=== PATIENT | male | born 1935 | race Caucasian/White ===

== ENCOUNTER 2016-11-05 18:43 | Emergency (ER) | payer MEDICARE ==
[2016-11-05 19:17] LABS: URINE BILIRUBIN NEGATIVE (NEGATIVE); URINE BLOOD NEGATIVE (NEGATIVE); URINE GLUCOSE (UA) NORMAL (NORMAL); URINE KETONE NEGATIVE (NEGATIVE); URINE LEUKOCYTE ESTERASE NEGATIVE (NEGATIVE); URINE NITRATE NEGATIVE (NEGATIVE); URINE PROTEIN NEGATIVE (NEGATIVE); UROBILINOGEN NORMAL mg/dL (<1.0)
== END 2016-11-05 20:40 | disposition home or self-care (01) ==
LOC: ER 18:43
PROVIDERS: Emergency Medicine
DX: R33.9 Retention of urine, unspecified (principal); I50.9 Heart failure, unspecified; J44.9 Chronic obstructive pulmonary disease, unspecified; Z79.899 Other long term (current) drug therapy
CPT/HCPCS: 51702; 81003; 99070; 99283

== ENCOUNTER 2016-11-17 13:28 | Emergency (ER) | payer MEDICARE ==
[2016-11-17 13:51] LABS: BASO # 0.1 10_X3_uL (0.0-0.1); BASO % 0.4 % (0.2-1.2); EOS # 0.3 10_X3_uL (0.0-0.5); GRAN # 9.8 10_X3_uL (1.8-5.4); GRAN % 69.1 % (34.0-67.9); HEMATOCRIT 27.2 % (40-51); HEMOGLOBIN 8.8 g/dL (13.7-17.5); LYMPH % 21.3 % (21.8-53.1); MEAN CORPUSCULAR HEMOGLOBIN 32.7 pg (27.0-33.0); MEAN CORPUSCULAR HGB CONC 32.4 g/dL (32.0-36.0); MEAN CORPUSCULAR VOLUME 101.1 fL (79-92); MEAN PLATELET VOLUME 9.3 fl (7.5-11.5); MONO % 7.2 % (5.3-12.2); PLATELET COUNT 272 x10_3/uL (163-337); RED BLOOD COUNT 2.69 x10_6/uL (4.6-6.1); RED CELL DISTRIBUTION WIDTH 16.1 % (11.6-14.4); WHITE BLOOD COUNT 14.2 x10_3/uL (4.2-9.1)
[2016-11-17 14:00] LABS: ARTERIAL BLD GAS O2 SATURATION 95.1 % (94-98); ARTERIAL BLOOD GAS BASE EXCESS 7.4 mmol/L (-2.0-3.0); ARTERIAL BLOOD GAS HCO3 31.3 mmol/L (22-26); ARTERIAL BLOOD GAS PCO2 42.9 mmHg (35-48); ARTERIAL BLOOD GAS pH 7.48 (7.35-7.45)
[2016-11-17 14:09] LABS: ALBUMIN 2.5 gm/dL (3.4-5.0); BILIRUBIN,TOTAL 0.24 mg/dL (0.0-1.0); CALCIUM 8.2 mg/dL (8.7-10.7); CREATININE 2.7 mg/dL (0.6-1.3); TOTAL PROTEIN 6.2 gm/dL (6.4-8.2)
== END 2016-11-17 17:00 | disposition short-term general hospital (02) ==
LOC: ER 13:28
PROVIDERS: Emergency Medicine
DX: J86.9 Pyothorax without fistula (principal); J44.1 Chronic obstructive pulmonary disease with (acute) exacerbation; R60.0 Localized edema; Z99.81 Dependence on supplemental oxygen; Z79.899 Other long term (current) drug therapy
CPT/HCPCS: 36415; 36600; 71250; 80053; 82550; 82553; 82803; 83605; 85025; 86850; 86900; 86901; 87040; 93005; 94664; 96374; 99284; 99285-25; J2930

== ENCOUNTER 2016-11-29 18:43 | Inpatient (IN) | payer MEDICARE ==
[~2016-11-29] VITALS: Ht 167.6 cm; Wt 88.0 kg
[2016-11-29 19:57] LABS: URINE BILIRUBIN NEGATIVE (NEGATIVE); URINE BLOOD TRACE (NEGATIVE); URINE GLUCOSE (UA) NORMAL (NORMAL); URINE KETONE NEGATIVE (NEGATIVE); URINE LEUKOCYTE ESTERASE 2+ (NEGATIVE); URINE NITRATE NEGATIVE (NEGATIVE); URINE PROTEIN TRACE (NEGATIVE); UROBILINOGEN NORMAL mg/dL (<1.0)
[2016-11-29 20:44] LABS: URINE BACTERIA FEW (NONE SEEN); URINE SQUAMOUS EPITHELIAL CELL 0-10 /[HPF] (NONE SEEN); URINE WBC >15 /[HPF] (0-3); URINE YEAST FEW (NONE SEEN)
[2016-11-30 06:51] LABS: HEMATOCRIT 22.6 % (40-51); MEAN CORPUSCULAR VOLUME 101.3 fL (79-92); MEAN PLATELET VOLUME 8.9 fl (7.5-11.5); RED BLOOD COUNT 2.23 x10_6/uL (4.6-6.1); RED CELL DISTRIBUTION WIDTH 18.7 % (11.6-14.4); WHITE BLOOD COUNT 11.2 x10_3/uL (4.2-9.1)
[2016-11-30 07:01] LABS: MEAN CORPUSCULAR HEMOGLOBIN 31.3 pg (27.0-33.0)
[2016-11-30 07:19] LABS: ALBUMIN 2.4 gm/dL (3.4-5.0); BILIRUBIN,TOTAL 0.19 mg/dL (0.0-1.0); CALCIUM 7.9 mg/dL (8.7-10.7); CREATININE 1.4 mg/dL (0.6-1.3); POTASSIUM 3.9 mmol/L (3.5-5.1); TOTAL PROTEIN 5.2 gm/dL (6.4-8.2)
[2016-11-30 08:04] LABS: HEMATOCRIT 22.4 % (40-51)
[2016-11-30 08:07] LABS: HEMOGLOBIN 7.2 g/dL (13.7-17.5)
[2016-12-01 06:40] LABS: HEMATOCRIT 29.1 % (40-51); HEMOGLOBIN 9.7 g/dL (13.7-17.5); MEAN CORPUSCULAR HEMOGLOBIN 31.8 pg (27.0-33.0); MEAN CORPUSCULAR HGB CONC 33.3 g/dL (32.0-36.0); MEAN CORPUSCULAR VOLUME 95.4 fL (79-92); MEAN PLATELET VOLUME 8.9 fl (7.5-11.5); RED BLOOD COUNT 3.05 x10_6/uL (4.6-6.1); RED CELL DISTRIBUTION WIDTH 20.3 % (11.6-14.4); WHITE BLOOD COUNT 10.9 x10_3/uL (4.2-9.1)
[2016-12-01 06:58] LABS: ALBUMIN 2.4 gm/dL (3.4-5.0); BILIRUBIN,TOTAL 0.22 mg/dL (0.0-1.0); CALCIUM 7.9 mg/dL (8.7-10.7); CREATININE 1.4 mg/dL (0.6-1.3); MAGNESIUM 1.9 mg/dL (1.8-2.4); POTASSIUM 3.8 mmol/L (3.5-5.1); TOTAL PROTEIN 5.4 gm/dL (6.4-8.2)
[2016-12-04 07:37] LABS: HEMATOCRIT 29.6 % (40-51); HEMOGLOBIN 9.6 g/dL (13.7-17.5); MEAN CORPUSCULAR HEMOGLOBIN 31.4 pg (27.0-33.0); MEAN CORPUSCULAR HGB CONC 32.4 g/dL (32.0-36.0); MEAN CORPUSCULAR VOLUME 96.7 fL (79-92); RED BLOOD COUNT 3.06 x10_6/uL (4.6-6.1); RED CELL DISTRIBUTION WIDTH 19.1 % (11.6-14.4); WHITE BLOOD COUNT 9.9 x10_3/uL (4.2-9.1)
[2016-12-04 07:40] LABS: CREATININE 1.3 mg/dL (0.6-1.3); POTASSIUM 3.6 mmol/L (3.5-5.1)
[2016-12-07 07:40] LABS: HEMATOCRIT 27.7 % (40-51); HEMOGLOBIN 9.1 g/dL (13.7-17.5); MEAN CORPUSCULAR HEMOGLOBIN 31.5 pg (27.0-33.0); MEAN CORPUSCULAR HGB CONC 32.9 g/dL (32.0-36.0); MEAN CORPUSCULAR VOLUME 95.8 fL (79-92); MEAN PLATELET VOLUME 9.6 fl (7.5-11.5); RED BLOOD COUNT 2.89 x10_6/uL (4.6-6.1); RED CELL DISTRIBUTION WIDTH 18.8 % (11.6-14.4); WHITE BLOOD COUNT 7.1 x10_3/uL (4.2-9.1)
[2016-12-07 07:43] LABS: CALCIUM 7.7 mg/dL (8.7-10.7); CREATININE 1.3 mg/dL (0.6-1.3); POTASSIUM 3.1 mmol/L (3.5-5.1)
[2016-12-09 08:30] LABS: CALCIUM 7.7 mg/dL (8.7-10.7); CREATININE 1.3 mg/dL (0.6-1.3); POTASSIUM 3.3 mmol/L (3.5-5.1)
[2016-12-11 06:56] LABS: BASO % 0.5 % (0.2-1.2); EOS # 0.4 10_X3_uL (0.0-0.5); GRAN # 4.3 10_X3_uL (1.8-5.4); GRAN % 54.6 % (34.0-67.9); HEMATOCRIT 26.6 % (40-51); HEMOGLOBIN 8.7 g/dL (13.7-17.5); LYMPH # 2.4 10_X3_uL (1.3-3.6); LYMPH % 29.8 % (21.8-53.1); MEAN CORPUSCULAR HEMOGLOBIN 31.3 pg (27.0-33.0); MEAN CORPUSCULAR HGB CONC 32.7 g/dL (32.0-36.0); MEAN CORPUSCULAR VOLUME 95.7 fL (79-92); MEAN PLATELET VOLUME 9.7 fl (7.5-11.5); MONO # 0.8 10_X3_uL (0.3-0.8); MONO % 10.1 % (5.3-12.2); PLATELET COUNT 179 x10_3/uL (163-337); RED BLOOD COUNT 2.78 x10_6/uL (4.6-6.1); RED CELL DISTRIBUTION WIDTH 18.3 % (11.6-14.4)
[2016-12-11 07:09] LABS: BLOOD UREA NITROGEN 8 mg/dL (7-18); CALCIUM 7.8 mg/dL (8.7-10.7); CARBON DIOXIDE 19 mmol/L (21-32); CREATININE 1.2 mg/dL (0.6-1.3); GLUCOSE,RANDOM 89 mg/dL (70-99); POTASSIUM 3.2 mmol/L (3.5-5.1); SODIUM 143 mmol/L (136-145)
== END 2016-12-11 16:46 | disposition home or self-care (01) | DRG 463 ==
LOC: SWING 18:43
PROVIDERS: ADMIT Family Medicine
PROC: 30260N1 (ICD-10-PCS; principal; 2016-11-30)
PROC: 0HB0XZZ Excision of Scalp Skin, External Approach (ICD-10-PCS; 2016-12-06)
DX: M62.50 Muscle wasting and atrophy, not elsewhere classified, unspecified site (principal); J86.9 Pyothorax without fistula; J18.9 Pneumonia, unspecified organism; J44.0 Chronic obstructive pulmonary disease with (acute) lower respiratory infection; I13.0 Hypertensive heart and chronic kidney disease with heart failure and stage 1 through stage 4 chronic kidney disease, or unspecified chronic kidney disease; I69.354 Hemiplegia and hemiparesis following cerebral infarction affecting left non-dominant side; B96.20 Unspecified Escherichia coli [E. coli] as the cause of diseases classified elsewhere; R31.9 Hematuria, unspecified; D64.9 Anemia, unspecified; I50.9 Heart failure, unspecified; N18.9 Chronic kidney disease, unspecified; R13.10 Dysphagia, unspecified; L72.9 Follicular cyst of the skin and subcutaneous tissue, unspecified; R53.1 Weakness; K59.00 Constipation, unspecified; Z79.899 Other long term (current) drug therapy; Z79.02 Long term (current) use of antithrombotics/antiplatelets; Z98.890 Other specified postprocedural states
CPT/HCPCS: 11424; 36415; 36430; 71250; 80048; 80053; 80061; 81001; 82962; 83036; 83735; 85014; 85025; 86850; 86900; 86901; 86920; 87070; 87086; 87324; 93041; 94640; 94664; 97110; 97116; 97530; 99070; J7040; P9016